=== PATIENT | female | born 1990 | race Two or more races ===

== ENCOUNTER 2018-11-10 16:18 | Emergency (ER) | payer MEDICAID ==
[~2018-11-10] VITALS: Ht 172.7 cm; Wt 54.4 kg
--- NOTE | 2018-11-10 16:18 | NUR ---
PT [place] FROM [facility]; PT AAOX4, PT ON MONITOR, VSS, NAD NOTED, PENDING ER PROVIDER RUDY
[2018-11-10 17:21] LABS: BASOPHILS # (AUTO) 0.1 /CMM (0.0-0.2); BASOPHILS % (AUTO) 0.9 % (0.0-2.0); EOSINOPHILS % (AUTO) 0.2 % (0.0-6.0); HEMATOCRIT 45 % (33-45); HEMOGLOBIN 15.1 g/dL (11.5-14.8); LYMPHOCYTES # (AUTO) 2.4 /CMM (0.8-4.8); LYMPHOCYTES % (AUTO) 29.1 % (20.0-44.0); MEAN CORPUSCULAR HGB CONC 34 g/dl (31.0-36.0); MEAN CORPUSCULAR VOLUME 101 fL (82-100); MONOCYTES # (AUTO) 0.5 /CMM (0.1-1.30); MONOCYTES % (AUTO) 6.3 % (2.0-12.0); NEUTROPHILS # (AUTO) 5.1 /CMM (1.8-8.9); NEUTROPHILS % (AUTO) 63.5 % (43.0-81.0); PLATELET COUNT (AUTO) 276 /CMM (150-450); RED BLOOD CELL COUNT(AUTO) 4.44 MIL/uL (4.0-5.2); WHITE BLOOD COUNT (AUTO) 8.1 K/uL (4.3-11.0)
[2018-11-10 17:29] LABS: CARBON DIOXIDE 26 mmol/L (21-32); CHLORIDE 108 mmol/L (98-107); CREATININE 0.6 mg/dL (0.6-1.3); GLUCOSE 118 mg/dL (74-106); POTASSIUM 3.7 mmol/L (3.5-5.1); SODIUM SERUM 142 mmol/L (136-145); UREA NITROGEN, BLOOD 17 mg/dL (7-18)
[2018-11-10] MEDS ORDERED: IV NS 0.9% 1,000 ML BAG IV ONE (17:30)
[2018-11-10 17:34] LABS: ALANINE AMINOTRANSFERASE 21 U/L (12-78); ALBUMIN 3.4 g/dL (3.4-5.0); ALCOHOL, BLOOD < 3 mg/dL (0-0); ALKALINE PHOSPHATASE 92 U/L (46-116); ASPARTATE AMINOTRANSFERASE 13 U/L (15-37); BILIRUBIN,DIRECT 0.1 mg/dL (0.0-0.2); BILIRUBIN,TOTAL 0.3 mg/dL (0.2-1.0)
[2018-11-10 17:35] LABS: ACETAMINOPHEN < 10 ug/ml (10-30); SALICYLATE 1.8 mg/dL (2.8-20.0)
[2018-11-10 17:41] LABS: APPEARANCE,URINE Clear (CLEAR); BILIRUBIN,URINE Negative (NEGATIVE); BLOOD, URINE Trace-lysed Ery/uL (NEGATIVE); COLOR,URINE Yellow (YELLOW); KETONES,URINE Negative (NEGATIVE); LEUKOCYTE ESTERASE ,URINE Negative (NEGATIVE); NITRITE, URINE Negative (NEGATIVE); PROTEIN,URINE Negative (NEGATIVE); UGLUCOSE Negative (NEGATIVE); UROBILINOGEN,URINE 0.2 EU/dL (0.2)
[2018-11-10 18:04] LABS: VALPROIC ACID 72 ug/mL (50-100)
[2018-11-10 18:37] LABS: BACTERIA,URINE Rare /HPF (None Seen); RBC,URINE 2-3/HPF /HPF (0-2); SQUAMOUS EPITHELIAL CELL,UR Few /HPF (None Seen); WBC,URINE 0-2 /HPF (0-3)
[2018-11-10] MEDS ORDERED: NITROFURANTOIN/NITROFURAN MAC 100 MG CAPSULE PO ONE (20:00)
[2018-11-10] MEDS ORDERED: NITROFURANTOIN/NITROFURAN MAC 100 MG CAPSULE ONE (20:13)
--- NOTE | 2018-11-10 20:19 | NUR ---
PT TO RADIOLOGY FOR CT
--- NOTE | 2018-11-10 21:26 | NUR ---
FAXED PT RESULTS TO [facility] [phone]
[2018-11-10] MEDS ORDERED: LORAZEPAM 1 MG TABLET PO ONE (21:30)
[2018-11-10] MEDS ORDERED: LORAZEPAM 1 MG TABLET ONE (21:39)
--- NOTE | 2018-11-10 22:04 | NUR ---
CALLED [facility] FOR TRANSPORT TO [facility], [place] 20 MIN, TRIP #[id number]
--- NOTE | 2018-11-10 22:15 | NUR ---
REPORT GIVEN TO JOIE SWENSON FROM [facility].
[2018-11-10 22:25] VITALS: BP 106/57
--- NOTE | 2018-11-10 22:25 | NUR ---
IV removed. Catheter intact and site benign. Pressure and 4x4 applied to site. No bleeding noted.
--- NOTE | 2018-11-10 22:26 | NUR ---
REPORT GIVEN TO RADHA Garzon. PT AWARE OF TRANSFER TO [facility]. PT WITH ALL PERSONAL BELONGINGS. VSS. PT TRANSFERRED VIA [facility].
== END 2018-11-10 22:26 | disposition short-term general hospital (02) ==
LOC: ER 16:21
DX: N39.0 Urinary tract infection, site not specified (principal); I10 Essential (primary) hypertension; Z98.890 Other specified postprocedural states; Z88.6 Allergy status to analgesic agent; Z60.2 Problems related to living alone
CPT/HCPCS: 36415; 70450; 80048; 80076; 80164; 80305; 80307; 80329; 81001; 82962; 84703; 85025; 93005; 99285; A4606; G0480; J7030; 81000-TC